=== PATIENT | male | born 1985 | race African-American/Black ===

== ENCOUNTER 2017-11-20 16:24 | Emergency (ER) | payer OTHER ==
[2017-11-20] MEDS ORDERED: Aspirin 81 MG Tab.Chew PO ONE (16:30)
[2017-11-20] MEDS ORDERED: Sodium Chloride 0.9% 1,000 ML IV ONE (16:31)
--- NOTE | 2017-11-20 16:40 | EDM.PDOC ---
ED HPI GENERAL MEDICAL PROBLEM - General Stated Complaint: PT HAS CHEST PAINS Time Seen by Provider: 11/20/17 16:25 Source of Information: Reports: Patient History Limitations: Reports: No Limitations - History of Present Illness INITIAL COMMENTS - FREE TEXT/NARRATIVE: HISTORY AND PHYSICAL: History of present illness: Patient is a 32-year-old male who presents to the emergency room today with complaints of midsternal chest pain for approximately a week and a half. He states he has midsternal pressure when he is lifting anything heavy or he presses on his chest. Denies any fever, chills, shortness of breath or cough. He denies any abdominal pain, nausea, vomiting, diarrhea or constipation. States that his pain usually is a 6 out of 10 but does get as high as 8 out of 10. This is not associated with any diaphoresis, or pain radiating anywhere. Review of systems: As per history of present illness and below otherwise all systems reviewed and negative. Past medical history: As per history of present illness and as reviewed below otherwise noncontributory. Surgical history: As per history of present illness and as reviewed below otherwise noncontributory. Social history: No reported history of drug or alcohol abuse. Family history: As per history of present illness and as reviewed below otherwise noncontributory. Physical exam: General: Well-developed and well-nourished 32-year-old -[place] male. Alert and oriented. Nontoxic appearing and in no acute distress. HEENT: Atraumatic, normocephalic, pupils equal and reactive bilaterally, negative for conjunctival pallor or scleral icterus, mucous membranes moist, throat clear, neck supple, nontender, trachea midline. No drooling or trismus noted. No meningeal signs Lungs: Clear to auscultation, breath sounds equal bilaterally, mild chest tenderness with palpation. Heart: S1S2, regular rate and rhythm without overt murmur Abdomen: Soft, nondistended, nontender. Negative for masses or hepatosplenomegaly. Negative for costovertebral tenderness. Pelvis: Stable nontender. Genitourinary: Deferred. Rectal: Deferred. Skin: Intact, warm, dry. No lesions or rashes noted. Extremities: Atraumatic, negative for cords or calf pain. Neurovascular unremarkable. Neuro: Awake, alert, oriented. Cranial nerves II through XII unremarkable. Cerebellum unremarkable. Motor and sensory unremarkable throughout. Exam nonfocal. Notes: Blood pressure is currently 195/130. He states he has no history of HTN or heart disease. After the Nitro, patient's blood pressure has decreased into normal limits and pain is now a 1/10. Waiting for lab results. Labs, EKG and chest x-ray show no acute findings. This information was shared with the patient. His blood pressure is now 140s over 90. He is pain free. Did offer him admission due to his chest pain complaint and an episode of hypertension. He declines. He is aware of the risks of being discharged. To follow-up with his primary care provider for further evaluation and management of his blood pressure. He voices understanding and is agreeable to plan of care. Denies any further questions at this time. Diagnostics: CBC, CMP, Troponin, EKG, Chest xray, Therapeutics: NS, Aspirin, Nitro Impression: Chest Pain, nonspecific Hypertension Plan: 1. Please monitor your blood pressure over next several weeks. You should follow up with a primary care provider for further evaluation/monitoring of your blood pressure. 2. Tylenol and/or Ibuprofen as needed for pain management. 3. Follow up with your primary care provider in the next 1-2 days. Return to the ED as needed and as discussed. Definitive disposition and diagnosis as appropriate pending reevaluation and review of above. Duration: Week(s): Location: Reports: Chest Associated Symptoms: Reports: No Other Symptoms Chest Pain Score (Numeric/FACES): 8 - Related Data Allergies Allergy/AdvReac Type Severity Reaction Status Date / Time No Known Allergies Allergy Verified 11/20/17 16:34 Home Meds: Home Meds . [No Known Home Meds] 02/20/16 [History] Past Medical History - Past Health History Medical/Surgical History: Denies Medical/Surgical History Social & Family History - Family History Family Medical History: Noncontributory - Tobacco Use Smoking Status *Q: Never Smoker - Recreational Drug Use Recreational Drug Use: No ED ROS GENERAL - Review of Systems Review Of Systems: ROS reveals no pertinent complaints other than HPI. ED EXAM, GENERAL - Physical Exam Exam: See Below (See dictation) Course - Vital Signs Last Recorded V/S: Last Vital Signs Temp 98.1 F 11/20/17 17:00 Pulse 68 11/20/17 17:00 Resp 18 11/20/17 17:00 BP 195/130 H 11/20/17 17:00 Pulse Ox 100 11/20/17 17:00 - Orders/Labs/Meds Orders: Active Orders 24 hr Category Date Time Status EKG Documentation Completion [RC] STAT Care 11/20/17 16:26 Active Chest 1V Frontal [CR] Stat Exams 11/20/17 16:26 Taken Sodium Chloride 0.9% [Normal Saline] 1,000 ml Med 11/20/17 16:31 Active IV STAT Medication Orders Sodium Chloride (Normal Saline) 1,000 mls @ 999 mls/hr IV STAT ONE Stop: 11/20/17 17:31 Last Admin: 11/20/17 16:49 Dose: 999 mls/hr Labs: Laboratory Tests 11/20/17 11/20/17 Range/Units 16:35 16:35 WBC 3.30 L (4.0-11.0) K/uL RBC 5.40 (4.50-5.90) M/uL Hgb 16.0 (13.0-17.0) g/dL Hct 46.8 (38.0-50.0) % MCV 86.7 (80.0-98.0) fL MCH 29.6 (27.0-32.0) pg MCHC 34.2 (31.0-37.0) g/dL RDW Std Deviation 39.9 (28.0-62.0) fl RDW Coeff of Naomi 13 (11.0-15.0) % Plt Count 161 (150-400) K/uL MPV 11.60 (7.40-12.00) fL Neut % (Auto) 34.2 L (48.0-80.0) % Lymph % (Auto) 56.4 H (16.0-40.0) % [place] % (Auto) 6.4 (0.0-15.0) % Eos % (Auto) 2.7 (0.0-7.0) % Baso % (Auto) 0.3 (0.0-1.5) % Neut # (Auto) 1.1 L (1.4-5.7) K/uL Lymph # (Auto) 1.9 (0.6-2.4) K/uL [place] # (Auto) 0.2 (0.0-0.8) K/uL Eos # (Auto) 0.1 (0.0-0.7) K/uL Baso # (Auto) 0.0 (0.0-0.1) K/uL Nucleated RBC % 0.0 /100WBC Nucleated RBCs # 0 K/uL Sodium 140 (136-148) mmol/L Potassium 3.9 (3.5-5.1) mmol/L Chloride 105 (98-107) mmol/L Carbon Dioxide 25.3 (21.0-32.0) mmol/L BUN 13 (7.0-18.0) mg/dL Creatinine 0.9 (0.8-1.3) mg/dL Est Cr Clr Drug Dosing TNP Estimated GFR (MDRD) > 60.0 ml/min Glucose 104 (74-106) mg/dL Calcium 9.8 (8.5-10.1) mg/dL Total Bilirubin 0.2 (0.2-1.0) mg/dL AST 25 (15-37) IU/L ALT 34 (14-63) IU/L Alkaline Phosphatase 57 (46-116) U/L Troponin I < 0.050 (0.000-0.056) ng/mL Total Protein 8.2 (6.4-8.2) g/dL Albumin 4.1 (3.4-5.0) g/dL Globulin 4.1 H (2.0-3.5) g/dL Albumin/Globulin Ratio 1.0 L (1.3-2.8) Meds: Medications Generic Name Dose Route Start Last Admin Trade Name Freq PRN Reason Stop Dose Admin Sodium Chloride 1,000 mls @ 999 mls/hr 11/20/17 16:31 11/20/17 16:49 Normal Saline IV 11/20/17 17:31 999 mls/hr STAT ONE Administration Discontinued Medications Generic Name Dose Route Start Last Admin Trade Name Freq PRN Reason Stop Dose Admin Aspirin 324 mg 11/20/17 16:30 11/20/17 16:44 Aspirin PO 11/20/17 16:31 324 mg ONETIME ONE Administration Nitroglycerin 0.4 mg 11/20/17 16:30 11/20/17 16:58 Nitrostat SL 0.4 mg Q5M PRN Administration Chest Pain Departure - Departure Time of Disposition: 17:28 Disposition: Home, Self-Care 01 Clinical Impression: Chest pain Qualifiers: Chest pain type: unspecified Qualified Code(s): R07.9 - Chest pain, unspecified Instructions: Nonspecific Chest Pain, [id number] Referrals: PCP,None [Primary Care Provider] - Additional Instructions: The following information is given to patients seen in the emergency department who are being discharged to home. This information is to outline your options for follow-up care. We provide all patients seen in our emergency department with a follow-up referral. The need for follow-up, as well as the timing and circumstances, are variable depending upon the specifics of your emergency department visit. If you don't have a primary care physician on staff, we will provide you with a referral. We always advise you to contact your personal physician following an emergency department visit to inform them of the circumstance of the visit and for follow-up with them and/or the need for any referrals to a consulting specialist. The emergency department will also refer you to a specialist when appropriate. This referral assures that you have the opportunity for follow-up care with a specialist. All of these measure are taken in an effort to provide you with optimal care, which includes your follow-up. Under all circumstances we always encourage you to contact your private physician who remains a resource for coordinating your care. When calling for follow-up care, please make the office aware that this follow-up is from your recent emergency room visit. If for any reason you are refused follow-up, please contact the [facility] Emergency Department at and asked to speak to the emergency department charge nurse. [facility] [address] [place] [id number] 1. Please monitor your blood pressure over next several weeks. You should follow up with a primary care provider for further evaluation/monitoring of your blood pressure. May need medication to help manage this. 2. Tylenol and/or Ibuprofen as needed for pain management. 3. Follow up with your primary care provider in the next 1-2 days. Return to the ED as needed and as discussed. - My Orders Last 24 Hours: My Active Orders 05/01/18 16:26 EKG Documentation Completion [RC] STAT Chest 1V Frontal [CR] Stat 11/20/17 16:31 Sodium Chloride 0.9% [Normal Saline] 1,000 ml IV STAT - Assessment/Plan Last 24 Hours: My Active Orders 11/20/17 16:26 EKG Documentation Completion [RC] STAT Chest 1V Frontal [CR] Stat 11/20/17 16:31 Sodium Chloride 0.9% [Normal Saline] 1,000 ml IV STAT
[2017-11-20] MEDS: Nitroglycerin 0.4 MG Tab.SL SL PRN ×3 (16:47→16:58)
[2017-11-20 17:13] LABS: CHLORIDE,CL 105 mmol/L (98-107); SODIUM,NA 140 mmol/L (136-148)
[2017-11-20 17:44] VITALS: BP 115/75
--- NOTE | 2017-11-21 09:55 | CR ---
EXAM DATE: 11/20/17 PATIENT'S AGE: 32 Patient: VEL JOHNSON Facility: [place], [place] Site . Site : 1985 Study: XRay Chest [id number] 4:50:50 PM Ordering Physician: Doctor Narvaez Final Report: INDICATION: chest pain TECHNIQUE: Chest 1 view COMPARISON: None FINDINGS: Cardiovascular and mediastinum: Heart size and vasculature are normal in caliber and appearance. Mediastinum is within normal limits. Lungs and pleural space: No focal consolidation. No sign of pleural effusion. No pneumothorax. Bones and soft tissues: No significant findings. IMPRESSION: No acute cardiopulmonary disease. Dictated by Bong Carnes MD @ 11/20/2017 5:08:02 PM Dictated by: Bong Carnes MD @ 11/20/2017 17:08:06 (Electronic Signature) Report Signed by Proxy. DANE
== END 2017-11-20 17:40 | disposition home or self-care (01) ==
LOC: MW.ED 16:24
DX: R07.9 Chest pain, unspecified (principal); I10 Essential (primary) hypertension
CPT/HCPCS: 36415; 71045; 80053; 84484; 85025; 96360; 99285; A9270; J7040

== ENCOUNTER 2017-11-25 13:56 | Emergency (ER) | payer OTHER ==
--- NOTE | 2017-11-25 14:39 | EDM.PDOC ---
ED HPI GENERAL MEDICAL PROBLEM - General Chief Complaint: Headache Stated Complaint: HEADACHE Time Seen by Provider: 11/25/17 14:07 Source of Information: Reports: Patient History Limitations: Reports: No Limitations - History of Present Illness INITIAL COMMENTS - FREE TEXT/NARRATIVE: HISTORY AND PHYSICAL: History of present illness: Stephan is a 32-year-old male here with complaint of headache that started approximately 2 hours ago. He denies any history of headaches. He denies head trauma/injury. Denies any vomiting, photophobia, phonophobia, visual changes. He states he took 2 Motrin and his headache is gone from a 9/10 to a 5/10.] Review of systems: As per history of present illness and below otherwise all systems reviewed and negative. Past medical history: As per history of present illness and as reviewed below otherwise noncontributory. Surgical history: As per history of present illness and as reviewed below otherwise noncontributory. Social history: No reported history of drug or alcohol abuse. Family history: As per history of present illness and as reviewed below otherwise noncontributory. Physical exam: HEENT: Atraumatic, normocephalic, pupils reactive, negative for conjunctival pallor or scleral icterus, mucous membranes moist, throat clear, neck supple, nontender, trachea midline. Lungs: Clear to auscultation, breath sounds equal bilaterally, chest nontender. Heart: S1S2, regular, negative for clicks, rubs Abdomen: Soft, nondistended, nontender. Negative for masses or hepatosplenomegaly. Negative for costovertebral tenderness. Extremities: Atraumatic. Neurovascular unremarkable. Neuro: Awake, alert, oriented. Cranial nerves II through XII unremarkable. Cerebellum unremarkable. Motor and sensory unremarkable throughout. Exam nonfocal. Notes: 1600: Patient reports pain 0/10 after IV fluids and Toradol Diagnostics: [Head CT CBC, CMP] Therapeutics: [1L Normal Saline Toradol 30mg IV] Impression: [Headache] Plan: [1. Drink plenty of fluids and take Motrin or Tylenol as needed for headache 2. Follow-up with your primary care provider as discussed. 3. ED as needed as discussed] Definitive disposition and diagnosis as appropriate pending reevaluation and review of above. 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 - Physical Exam Exam: See Below (See dictation) Course - Vital Signs Last Recorded V/S: Last Vital Signs Temp 36.6 C 11/25/17 14:15 Pulse 90 11/25/17 14:15 Resp 18 11/25/17 14:15 BP 145/87 H 11/25/17 14:15 Pulse Ox 100 11/25/17 14:15 - Orders/Labs/Meds Orders: Active Orders 24 hr Category Date Time Status Head wo Cont [CT] Stat Exams 11/25/17 14:19 Taken Labs: Laboratory Tests 11/25/17 11/25/17 Range/Units 15:06 15:06 WBC 5.53 (4.0-11.0) K/uL RBC 5.48 (4.50-5.90) M/uL Hgb 16.1 (13.0-17.0) g/dL Hct 47.1 (38.0-50.0) % MCV 85.9 (80.0-98.0) fL MCH 29.4 (27.0-32.0) pg MCHC 34.2 (31.0-37.0) g/dL RDW Std Deviation 39.7 (28.0-62.0) fl RDW Coeff of Naomi 13 (11.0-15.0) % Plt Count 191 (150-400) K/uL MPV 10.90 (7.40-12.00) fL Neut % (Auto) 62.0 (48.0-80.0) % Lymph % (Auto) 29.3 (16.0-40.0) % [place] % (Auto) 6.5 (0.0-15.0) % Eos % (Auto) 1.8 (0.0-7.0) % Baso % (Auto) 0.4 (0.0-1.5) % Neut # (Auto) 3.4 (1.4-5.7) K/uL Lymph # (Auto) 1.6 (0.6-2.4) K/uL [place] # (Auto) 0.4 (0.0-0.8) K/uL Eos # (Auto) 0.1 (0.0-0.7) K/uL Baso # (Auto) 0.0 (0.0-0.1) K/uL Nucleated RBC % 0.0 /100WBC Nucleated RBCs # 0 K/uL Sodium 138 (136-148) mmol/L Potassium 3.8 (3.5-5.1) mmol/L Chloride 102 (98-107) mmol/L Carbon Dioxide 25.9 (21.0-32.0) mmol/L BUN 19 H (7.0-18.0) mg/dL Creatinine 1.4 H (0.8-1.3) mg/dL Est Cr Clr Drug Dosing 69.51 mL/min Estimated GFR (MDRD) > 60.0 ml/min Glucose 111 H (74-106) mg/dL Calcium 10.6 H (8.5-10.1) mg/dL Total Bilirubin 0.4 (0.2-1.0) mg/dL AST 39 H (15-37) IU/L ALT 32 (14-63) IU/L Alkaline Phosphatase 61 (46-116) U/L Total Protein 8.4 H (6.4-8.2) g/dL Albumin 4.2 (3.4-5.0) g/dL Globulin 4.2 H (2.0-3.5) g/dL Albumin/Globulin Ratio 1.0 L (1.3-2.8) Meds: Medications Discontinued Medications Generic Name Dose Route Start Last Admin Trade Name Freq PRN Reason Stop Dose Admin Sodium Chloride 1,000 mls @ 999 mls/hr 11/25/17 14:45 11/25/17 15:09 Normal Saline IV 11/25/17 15:45 999 mls/hr STAT ONE Administration Ketorolac Tromethamine 30 mg 11/25/17 14:45 11/25/17 15:12 Toradol IVPUSH 11/25/17 14:46 30 mg ONETIME ONE Administration Ketorolac Tromethamine Confirm 11/25/17 15:09 11/25/17 15:11 Toradol Administered 11/25/17 15:10 Not Given Dose 30 mg .ROUTE .STK-MED ONE Departure - Departure Time of Disposition: 16:13 Disposition: Home, Self-Care 01 Condition: Good Clinical Impression: Headache - Discharge Information Referrals: Ton Denny [Primary Care Provider] - Forms: ED Department Discharge Additional Instructions: The following information is given to patients seen in the emergency department who are being discharged to home. This information is to outline your options for follow-up care. We provide all patients seen in our emergency department with a follow-up referral. The need for follow-up, as well as the timing and circumstances, are variable depending upon the specifics of your emergency department visit. If you don't have a primary care physician on staff, we will provide you with a referral. We always advise you to contact your personal physician following an emergency department visit to inform them of the circumstance of the visit and for follow-up with them and/or the need for any referrals to a consulting specialist. The emergency department will also refer you to a specialist when appropriate. This referral assures that you have the opportunity for follow-up care with a specialist. All of these measure are taken in an effort to provide you with optimal care, which includes your follow-up. Under all circumstances we always encourage you to contact your private physician who remains a resource for coordinating your care. When calling for follow-up care, please make the office aware that this follow-up is from your recent emergency room visit. If for any reason you are refused follow-up, please contact the [facility] Emergency Department at and asked to speak to the emergency department charge nurse. 1. Drink plenty of fluids and take Motrin or Tylenol as needed for headache 2. Follow-up with your primary care provider as discussed. 3. ED as needed as discussed - My Orders Last 24 Hours: My Active Orders 11/25/17 14:19 Head wo Cont [CT] Stat - Assessment/Plan Last 24 Hours: My Active Orders 11/25/17 14:19 Head wo Cont [CT] Stat
[2017-11-25] MEDS ORDERED: Sodium Chloride 0.9% 1,000 ML IV ONE (14:45)
[2017-11-25] MEDS ORDERED: Ketorolac 30 MG/ML SDV IVPUSH ONE (14:45)
[2017-11-25] MEDS ORDERED: Ketorolac 30 MG/ML SDV ONE (15:09)
[2017-11-25 15:37] LABS: CHLORIDE,CL 102 mmol/L (98-107); SODIUM,NA 138 mmol/L (136-148)
[2017-11-25 16:33] VITALS: BP 135/86
--- NOTE | 2017-11-26 13:27 | CT ---
EXAM DATE: 11/25/17 PATIENT'S AGE: 32 Patient: VEL JOHNSON Facility: [place], [place] Site . Site : 1985 Study: CT Head [id number] 2:58:09 PM Ordering Physician: Doctor Narvaez Final Report: INDICATION: Headache. TECHNIQUE: CT head without IV contrast. FINDINGS: Minimal mucosal thickening in the paranasal sinuses. No intracranial hemorrhage , edema, or mass effect. No significant intracranial findings. Moderate soft tissue prominence in the scalp diffusely and bilaterally greater on the left. Airway is narrowed in the posterior nasopharynx and oropharynx. Remainder negative. IMPRESSION: 1. No acute intracranial disease. 2. Moderate soft tissue prominence in the scalp bilaterally is diffuse and nonspecific. 3. Minimal inflammatory changes in the paranasal sinuses. Please note that all CT scans at this facility use dose modulation, iterative reconstruction, and/or weight-based dosing when appropriate to reduce radiation dose to as low as reasonably achievable. Dictated by Jude Almanza MD @ Nov 25 2017 3:16PM (Electronic Signature) Report Signed by Proxy. [facility]
== END 2017-11-25 16:31 | disposition home or self-care (01) ==
LOC: MW.ED 13:56
DX: R51 Headache (principal)
CPT/HCPCS: 36415; 70450; 80053; 85025; 96361; 96374; 99284; J1885; J7040; 99283

== ENCOUNTER 2019-03-07 15:17 | Emergency (ER) | payer BC, OTHER ==
[2019-03-07 15:23] VITALS: BP 136/89
--- NOTE | 2019-03-07 15:27 | EDM.PDOC ---
ED HPI GENERAL MEDICAL PROBLEM - General Chief Complaint: Chest Pain Stated Complaint: CHEST PAIN Time Seen by Provider: 03/07/19 15:19 - History of Present Illness INITIAL COMMENTS - FREE TEXT/NARRATIVE: HISTORY AND PHYSICAL: History of present illness: Patient is a 33-year-old male history hypertension hypercholesteremia who presents with a concern of chest pain described associated shortness breath nausea vomiting palpitations or diaphoresis he has had a workup including stress test that was unremarkable Review of systems: As per history of present illness and below otherwise all systems reviewed and negative. Past medical history: As per history of present illness and as reviewed below otherwise noncontributory. Surgical history: As per history of present illness and as reviewed below otherwise noncontributory. Social history: No reported history of drug or alcohol abuse. Family history: As per history of present illness and as reviewed below otherwise noncontributory. Physical exam: HEENT: Atraumatic, normocephalic, pupils reactive, negative for conjunctival pallor or scleral icterus, mucous membranes moist, throat clear, neck supple, nontender, trachea midline. Lungs: Clear to auscultation, breath sounds equal bilaterally, chest nontender. Heart: S1S2, regular, negative for clicks, rubs, or JVD. Abdomen: Soft, nondistended, nontender. Negative for masses or hepatosplenomegaly. Negative for costovertebral tenderness. Pelvis: Stable nontender. Genitourinary: Deferred. Rectal: Deferred. Extremities: Atraumatic, negative for cords or calf pain. Neurovascular unremarkable. Neuro: Awake, alert, oriented. Cranial nerves II through XII unremarkable. Cerebellum unremarkable. Motor and sensory unremarkable throughout. Exam nonfocal. Diagnostics: Chest x-ray EKG Therapeutics: None Impression: #1 atypical chest pain #2 medical screening exam over #3 history of hypertension Definitive disposition and diagnosis as appropriate pending reevaluation and review of above. Chest Pain Score (Numeric/FACES): 3 - Related Data Allergies Allergy/AdvReac Type Severity Reaction Status Date / Time No Known Allergies Allergy Verified 03/07/19 15:20 Home Meds: Home Meds Lisinopril/Hydrochlorothiazide [Lisinopril-Hctz 20-12.5 mg Tab] 1 mg PO DAILY [History] atorvaSTATin [Lipitor] 20 mg PO DAILY 03/07/19 [History] Past Medical History - Past Health History Medical/Surgical History: Denies Medical/Surgical History HEENT History: Reports: None Cardiovascular History: Reports: High Cholesterol, Hypertension Respiratory History: Reports: None Gastrointestinal History: Reports: None Genitourinary History: Reports: None Musculoskeletal History: Reports: None Neurological History: Reports: None Psychiatric History: Reports: None Endocrine/Metabolic History: Reports: None Hematologic History: Reports: None Immunologic History: Reports: None Oncologic (Cancer) History: Reports: None Dermatologic History: Reports: None - Past Surgical History Head Surgeries/Procedures: Reports: None HEENT Surgical History: Reports: None Cardiovascular Surgical History: Reports: None Respiratory Surgical History: Reports: None GI Surgical History: Reports: None Male Surgical History: Reports: None Endocrine Surgical History: Reports: None Neurological Surgical History: Reports: None Musculoskeletal Surgical History: Reports: None Oncologic Surgical History: Reports: None Dermatological Surgical History: Reports: None Social & Family History - Family History Family Medical History: Noncontributory - Tobacco Use Smoking Status *Q: Never Smoker Second Hand Smoke Exposure: No - Caffeine Use Caffeine Use: Reports: None - Recreational Drug Use Recreational Drug Use: No ED ROS GENERAL - Review of Systems Review Of Systems: ROS reveals no pertinent complaints other than HPI. ED EXAM, GENERAL - Physical Exam Exam: See Below (See dictation) Course - Vital Signs Last Recorded V/S: Last Vital Signs Temp 35.7 C 03/07/19 15:21 Pulse 76 03/07/19 15:21 Resp 18 03/07/19 15:21 BP 136/89 03/07/19 15:21 Pulse Ox 98 03/07/19 15:21 - Orders/Labs/Meds Orders: Active Orders 24 hr Category Date Time Status EKG Documentation Completion [RC] STAT Care 03/07/19 15:22 Active Chest 1V Frontal [CR] Stat Exams 03/07/19 15:22 Ordered Departure - Departure Time of Disposition: 15:26 Disposition: Home, Self-Care 01 Condition: Good Clinical Impression: Atypical chest pain, Encounter for medical screening examination - Discharge Information Referrals: PCP,Unknown [Primary Care Provider] - Additional Instructions: The following information is given to patients seen in the emergency department who are being discharged to home. This information is to outline your options for follow-up care. We provide all patients seen in our emergency department with a follow-up referral. The need for follow-up, as well as the timing and circumstances, are variable depending upon the specifics of your emergency department visit. If you don't have a primary care physician on staff, we will provide you with a referral. We always advise you to contact your personal physician following an emergency department visit to inform them of the circumstance of the visit and for follow-up with them and/or the need for any referrals to a consulting specialist. The emergency department will also refer you to a specialist when appropriate. This referral assures that you have the opportunity for followup care with a specialist. All of these measure are taken in an effort to provide you with optimal care, which includes your followup. Under all circumstances we always encourage you to contact your private physician who remains a resource for coordinating your care. When calling for followup care, please make the office aware that this follow-up is from your recent emergency room visit. If for any reason you are refused follow-up, please contact the [facility] emergency department at and asked to speak to the emergency department charge nurse. Continue current medication follow-up primary medical doctor return as needed as discussed - My Orders Last 24 Hours: My Active Orders 03/07/19 15:22 EKG Documentation Completion [RC] STAT Chest 1V Frontal [CR] Stat - Assessment/Plan Last 24 Hours: My Active Orders 03/07/19 15:22 EKG Documentation Completion [RC] STAT Chest 1V Frontal [CR] Stat
--- NOTE | 2019-03-07 16:20 | CR ---
INDICATION: pain, sob TECHNIQUE: Chest 1 view. COMPARISON: 11/20/17 FINDINGS: Cardiovascular and mediastinum: Heart size and vasculature are normal in caliber and appearance. Mediastinum is within normal limits. Lungs and pleural space: Lungs are clear. No sign of infiltrate or mass. No sign of pleural effusion. No pneumothorax. Bones and soft tissues: No significant findings. IMPRESSION: Unremarkable chest. Dictated by: Ronnell English MD @ 03/07/2019 16:19:14 (Electronically Signed)
== END 2019-03-07 16:10 | disposition home or self-care (01) ==
LOC: MW.ED 15:17
DX: R07.89 Other chest pain (principal); I10 Essential (primary) hypertension; E78.00 Pure hypercholesterolemia, unspecified; Z79.899 Other long term (current) drug therapy
CPT/HCPCS: 71045; 71045-26; 93005; 99283; 99285-25

== ENCOUNTER 2023-12-08 02:53 | Emergency (ER) | payer BC ==
[2023-12-08 06:15] VITALS: BP 152/96; PULSE 67
[2023-12-08] MEDS: Dexamethasone 4 MG/ML SDV IVPUSH ONE (06:54)
== END 2023-12-08 07:06 | disposition home or self-care (01) ==
LOC: MW.ED 02:53
DX: S12.8XXA Fracture of other parts of neck, initial encounter (principal); I10 Essential (primary) hypertension; E78.00 Pure hypercholesterolemia, unspecified; Z79.899 Other long term (current) drug therapy; Z75.8 Other problems related to medical facilities and other health care; Y04.2XXA Assault by strike against or bumped into by another person, initial encounter
CPT/HCPCS: 70490; 96374; 99283; J1100; 99284

== ENCOUNTER 2023-12-22 01:33 | Emergency (ER) | payer SELFPAY ==
[2023-12-22 03:20] VITALS: BP 146/81; PULSE 70
== END 2023-12-22 03:21 | disposition home or self-care (01) ==
LOC: MW.ED 01:33
DX: R07.0 Pain in throat (principal); I10 Essential (primary) hypertension; E78.00 Pure hypercholesterolemia, unspecified; Z79.899 Other long term (current) drug therapy; Z75.8 Other problems related to medical facilities and other health care
CPT/HCPCS: 99282

== ENCOUNTER 2025-06-23 22:36 | Emergency (ER) | payer BC ==
[2025-06-23] MEDS ORDERED: Sodium Chloride 0.9% 2.5 ML Syringe FLUSH PRN (22:37)
[2025-06-23] MEDS ORDERED: Sodium Chloride 0.9% 10 ML Syringe FLUSH PRN (22:37)
[2025-06-23 23:02] LABS: BASOPHILS ABSOLUTE AUTO 0.02 K/uL (0.00-0.20); BASOPHILS PERCENT AUTO 0.4 % (0.0-1.0); EOSINOPHILS ABSOLUTE AUTO 0.15 K/uL (0.00-0.45); EOSINOPHILS PERCENT AUTO 2.8 % (0.0-6.0); IMMATURE GRAN ABSOLUTE AUTO 0.01 K/uL (0.00-0.05); IMMATURE GRAN PERCENT AUTO 0.2 % (0.0-0.4); LYMPHOCYTES ABSOLUTE AUTO 2.74 K/uL (1.00-4.80); LYMPHOCYTES PERCENT AUTO 51.8 % (24.0-44.0); MEAN PLATELET VOLUME 11.4 fL (9.4-12.4); MONOCYTES ABSOLUTE AUTO 0.46 K/uL (0.00-0.80); MONOCYTES PERCENT AUTO 8.7 % (0.0-8.0); NEUTROPHILS ABSOLUTE AUTO 1.91 K/uL (1.80-7.70); NEUTROPHILS PERCENT AUTO 36.1 % (41.0-71.0); NRBC ABSOLUTE 0.00 K/uL (0.00-0.02); NRBC PERCENT 0.0 /100WBC (0.0-0.2); PLATELET COUNT,PLT 191 K/uL (150-400); RED BLOOD CELL COUNT 4.53 M/uL (4.52-5.90); WHITE BLOOD CELL COUNT,WBC 5.29 K/uL (3.9-11.3)
[2025-06-23] MEDS: Ketorolac 30 MG/ML SDV IVPUSH ONE (23:06)
[2025-06-23 23:14] LABS: INR 1.03 (0.86-1.11)
[2025-06-23 23:34] LABS: IRON,FE 61.0 ug/dL (50-175); PERCENT FE SATURATION 17.84 % (20-55)
[2025-06-24 00:22] LABS: A/G RATIO 1.2 (0.9-1.6); ALANINE AMINOTRANSFERASE,ALT 41.0 IU/L (14-63); ASPARTATE AMNIOTRANSFERASE,AST 30.0 IU/L (15-37); BILIRUBIN TOTAL 0.2 mg/dL (0.2-1.0); BLOOD UREA NITROGEN,BUN 14.0 mg/dL (7.0-18.0); CARBON DIOXIDE,CO2 28.3 mmol/L (21.0-32.0); CHLORIDE,CL 104.0 mmol/L (98-107); CHOLESTEROL HDL 29.0 mg/dL (40-60); CHOLESTEROL LDL CALCULATED 100.0 mg/dL (60-180); CHOLESTEROL TOTAL 158.0 mg/dL (50-200); CREATININE 1.1 mg/dL (0.8-1.3); EST CRCL DRUG DOSING (CG) 85.5 mL/min; GLUCOSE RANDOM 138.0 mg/dL (74-106); POTASSIUM,K 3.6 mmol/L (3.5-5.1); PRO B-TYPE NATRIUR PEPT,BNPPRO 11.0 pg/mL (0-125); PROTEIN TOTAL,TP 7.8 g/dL (6.4-8.2); SODIUM,NA 141.0 mmol/L (136-148); VLDL CHOLESTEROL 29.0 mg/dL (5-55)
[2025-06-24 00:24] LABS: ESTIMATED GFR 86.0 mL/min (>60)
[2025-06-24 00:54] VITALS: BP 128/78; PULSE 67
== END 2025-06-24 00:53 | disposition home or self-care (01) ==
LOC: MW.ED 22:36
DX: R07.89 Other chest pain (principal); I49.1 Atrial premature depolarization; I10 Essential (primary) hypertension; E78.00 Pure hypercholesterolemia, unspecified; Z79.899 Other long term (current) drug therapy
CPT/HCPCS: 36415; 71045; 80053; 80061; 83550; 83690; 83735; 83880; 84484; 85025; 85610; 93005; 96374; 99285; A9270; J1885; J8540; 93010; 99284